=== PATIENT | female | born 1935 | race Caucasian/White ===

== ENCOUNTER 2021-10-17 16:01 | Emergency (ER) | payer MEDICARE, OTHER ==
[2021-10-17] VITALS (16 sets, daily range): BP systolic 111–133; BP diastolic 54–77
[2021-10-17] MEDS ORDERED: ARICEPT10 MG PO (17:51)
[2021-10-17] MEDS ORDERED: MIRTAZAPINE15 MG PO (17:51)
[2021-10-17] MEDS ORDERED: FUROSEMIDE20 MG PO (17:51)
[2021-10-17] MEDS ORDERED: RISPERIDONE0.5 MG PO (17:52)
[2021-10-17] MEDS ORDERED: NAMENDA XR28 MG (17:52)
[2021-10-17 19:01] LABS: HEMATOCRIT 33.3 % (37.0-47.0); HEMOGLOBIN 10.3 g/dl (12.0-16.0); IMMATURE GRANULOCYTES 0.6 % (0.0-5.0); MEAN CELL VOLUME 96.2 fL CALC (80.0-100.0); MEAN CORPUSCULAR HGB 29.8 pG CALC (26.0-32.0); MEAN CORPUSCULAR HGB CONC 30.9 g/dL CAL (32.0-36.0); NEUT# 4.65 thou/uL (2.00-7.15); RED BLOOD COUNT 3.46 mill/uL (4.20-5.60); RED CELL DISTRI WIDTH 17.6 % (11.5-15.5)
[2021-10-17 19:18] LABS: ALBUMIN 3.5 g/dL (3.2-5.0); ALKALINE PHOSPHATASE 108 u/l (38-126); ANION GAP 11 (6-22 (CALC)); BILIRUBIN, TOTAL 0.4 mg/dL (0.0-1.4); BUN 24 mg/dL (8-23); BUN/CREATININE RATIO 28 (12-20 (CALC)); CARBON DIOXIDE 27 mmol/l (22-30); CHLORIDE 104 mmol/l (95-108); CREATININE 0.9 mg/dL (0.5-1.0); GFR 59 ML/MIN (>=60 (CALC)); GFR FOR AFR.AMER. > 60 ML/MIN (>=60 (CALC)); POTASSIUM 4.4 mmol/l (3.5-5.1); SGOT/AST 16 u/l (9-36); SODIUM 138 mmol/l (137-146); TOTAL PROTEIN 6.7 g/dL (6.3-8.2)
[2021-10-18] VITALS (7 sets, daily range): BP systolic 98–120; BP diastolic 47–81
== END 2021-10-18 03:28 | disposition short-term general hospital (02) ==
LOC: ED 16:01
PROVIDERS: Nurse Practitioner
DX: S22.080A Wedge compression fracture of T11-T12 vertebra, initial encounter for closed fracture (principal); S32.010A Wedge compression fracture of first lumbar vertebra, initial encounter for closed fracture; F03.90 Unspecified dementia, unspecified severity, without behavioral disturbance, psychotic disturbance, mood disturbance, and anxiety; W19.XXXA Unspecified fall, initial encounter; Z91.81 History of falling

== ENCOUNTER 2021-11-15 14:07 | Emergency (ER) | payer MEDICARE, OTHER ==
[~2021-11-15] VITALS: Ht 152.4 cm; Wt 40.0 kg
[~2021-11-15 14:07] MED LIST: ARICEPT10 MG PO; FUROSEMIDE20 MG PO; MIRTAZAPINE15 MG PO; NAMENDA XR28 MG; RISPERIDONE0.5 MG PO
[2021-11-15 14:47] VITALS: BP 144/73
[2021-11-15 15:00] VITALS: BP 126/72
[2021-11-15] MEDS ORDERED: VOLTAREN1%GEL TOP (15:07)
[2021-11-15 15:15] VITALS: BP 139/66
== END 2021-11-15 15:20 | disposition home or self-care (01) ==
LOC: ED 14:07
DX: M79.651 Pain in right thigh (principal); F03.90 Unspecified dementia, unspecified severity, without behavioral disturbance, psychotic disturbance, mood disturbance, and anxiety

== ENCOUNTER 2024-06-22 12:20 | Inpatient (IN) | payer MEDICARE ==
[2024-06-22] VITALS (54 sets, daily range): BP systolic 48–160; BP diastolic 31–138
[~2024-06-22] VITALS: Ht 152.4 cm; Wt 41.9 kg
[~2024-06-22 12:20] MED LIST changes: +VOLTAREN1%GEL TOP
--- NOTE | 2024-06-22 12:20 | NUR ---
PT BROUGHT BACK TO ER ROOM 8 VIA WHEELCHAIR, FAMILY AT SIDE
--- NOTE | 2024-06-22 13:05 | NUR ---
PROVIDER AT BEDSIDE.
[2024-06-22 13:49] LABS: BASO% 0.6 % (0-3); HEMATOCRIT 33.7 % (37.0-47.0); HEMOGLOBIN 10.6 g/dl (12.0-16.0); IMMATURE GRANULOCYTES 0.2 % (0.0-5.0); LYMPH% 16.9 % (15-41); MEAN CELL VOLUME 96.8 fL CALC (80.0-100.0); MEAN CORPUSCULAR HGB 30.5 pG CALC (26.0-32.0); MEAN CORPUSCULAR HGB CONC 31.5 g/dL CAL (32.0-36.0); MONO% 7.7 % (2-13); NEUT# 3.68 thou/uL (2.00-7.15); NEUT% 70.6 % (42-76); RED BLOOD COUNT 3.48 mill/uL (4.20-5.60); RED CELL DISTRI WIDTH 15.5 % (11.5-15.5)
[2024-06-22 14:04] LABS: ALKALINE PHOSPHATASE 71 u/l (38-126); ANION GAP 14 (6-22 (CALC)); BUN 22 mg/dL (8-23); BUN/CREATININE RATIO 24 (12-20 (CALC)); CARBON DIOXIDE 24 mmol/l (22-30); CHLORIDE 104 mmol/l (95-108); CREATININE 0.9 mg/dL (0.5-1.0); ESTIMATED GFR 61 ML/MIN (>=90 (CALC)); MAGNESIUM 2.2 mg/dL (1.6-2.3); POTASSIUM 4.5 mmol/l (3.5-5.1); SGOT/AST 17 u/l (9-36); SODIUM 137 mmol/l (137-146); TOTAL PROTEIN 7.1 g/dL (6.3-8.2)
[2024-06-22 14:07] LABS: BILIRUBIN, TOTAL 0.9 mg/dL (0.02-1.3)
[2024-06-22] MEDS ORDERED: SODIUM CHLORIDE 0.9% 250 ML IV ONE (14:10)
[2024-06-22] MEDS ORDERED: DILTIAZEM HCL 125 MG in SODIUM CHLORIDE 0.9% 100 ML IV ONE (14:10)
[2024-06-22] MEDS ORDERED: dilTIAZem HCL 50 MG/10 ML SDV IV ONE (14:10)
[2024-06-22 14:46] LABS: URINE BILIRUBIN - DIPSTICK Negative (NEGATIVE); URINE BLOOD DIPSTICK Negative (NEGATIVE); URINE GLUCOSE - DIPSTICK Negative (NEGATIVE); URINE KETONE Negative (NEGATIVE); URINE NITRITE - DIPSTICK Negative (Negative); URINE PROTEIN - DIPSTICK Negative (NEG-TRACE); URINE SPECIFIC GRAVITY <=1.005; URINE UROBILINOGEN - DIPSTICK 0.2 E.U./dL (0.2)
[2024-06-22 14:48] LABS: URINE BACTERIA FEW hpf; URINE COLOR Yellow; URINE LEUK ESTERASE Small (NEGATIVE); URINE WBC 0-2 WBC/hpf (0-5)
[2024-06-22] MEDS ORDERED: ACETAMINOPHEN 325 MG/TAB PO PRN (15:05)
[2024-06-22] MEDS ORDERED: MAGNESIUM HYDROXIDE 30 ML UDC PO PRN (15:05)
[2024-06-22] MEDS ORDERED: REMERON7.5 MG PO (15:17)
--- NOTE | 2024-06-22 15:30 | NUR ---
CARDIZEM DRIP RUNNING @ 10 AT THIS TIME. PATIENT LYING IN BED WITH NO ACUTE DISTRESS NOTED AT THIS TIME.
[2024-06-22] MEDS ORDERED: ENOXAPARIN SODIUM 40 MG/0.4 ML SYR SC SCH (16:00)
--- NOTE | 2024-06-22 16:00 | NUR ---
PATIENT SITTING UP IN BED WATCHING TV. DENIES NEEDS AT THIS TIME. CALL LIGHT IN REACH. VSS.
--- NOTE | 2024-06-22 16:25 | NUR ---
PATIENT TO ICU VIA WHEELCHAIR. CARDIZEM RUNNING AT 10 WITH HR BETWEEN 90-120, A FIB NOTED ON THE MONITOR.
--- NOTE | 2024-06-22 16:28 | NUR ---
PATIENT ARRIVED FROM ER VIA WHEELCHAIR. PATIENT WAS ABLE TO AMBULATE TO BED WITH WALKER WITHOUT ISSUE. PATIENT AXO X3. S1S2 NOTED, A-FLUTTER ON TELE. LUNG SOUNDS CLEAR, NO COUGH OR SOB NOTED, ON ROOM AIR. ABDOMEN SOFT, NON DISTENDED, NON TENDER, WITH ACTIVE BOWEL SOUNDS. PULSES STRONG IN ALL EXTREMITIES. SKIN WDI, NO EDEMA NOTED.
[2024-06-22] MEDS ORDERED: NOREPINEPHRINE BITARTRATE 4 MG in DEXTROSE 5% 250 ML IV PRN (19:15)
[2024-06-22] MEDS ORDERED: SODIUM CHLORIDE 0.9% 250 ML IV PRN (19:15)
[2024-06-22] MEDS ORDERED: SODIUM CHLORIDE 0.9% 1,000 ML IV ONE (19:15)
--- NOTE | 2024-06-22 19:40 | NUR ---
ASSESSMENT COMPLETE. PREVIOUS NURSE OBTAINED ORDERS FOR NS 1L BOLUS, AND TO INITIATE LEVOPHED GTT FOR LOW BP. PT IN A-FIB, HR 130'S-160'S. CARDIZEM RESTARTED @ 10 MG/HR, AFTER 15 MIN, TITRATED TO 15 MG/HR. NEW IV STARTED IN RAC, 20 G. PT HAS NO COMPLAINTS.CALL LIGHT IN REACH
[2024-06-22] MEDS ORDERED: METOPROLOL TARTRATE 5 MG/5 ML VIAL IV SCH (21:00)
--- NOTE | 2024-06-22 21:00 | NUR ---
PROVIDER NOTIFIED OF HR, GAVE TELEPHONE ORDER FOR METOPROLOL 5 MG IV.
--- NOTE | 2024-06-22 22:00 | NUR ---
PT ASSISTED TO BR, PT USES WALKER TO ASSIST WITH AMBULATION. CARDIZEM @ 15 MG/HR, LEVOPHED @ 8 MCG/MIN. BRIEF PLACED ON PT PER HER REQUEST. CALL LIGHT IN REACH
[2024-06-23] VITALS (75 sets, daily range): BP systolic 66–191; BP diastolic 35–158
--- NOTE | 2024-06-23 00:19 | NUR ---
PROVIDER GAVE ORDERS TO WEAN PT OFF OF LEVOPHED GTT. PT RESTING COMFORTABLY, HAS NO COMPLAINTS/NEEDS AT THIS TIME. PW PLACED ON PT FOR URINATION. PT INQUIRED ABOUT IV SITE AND DURATION THEY NEEDED TO BE IN. EDUCATED PT ON NEED FOR IV PLACEMENT UNTIL DISCHARGE. VS STABLE, HR IS A-FIB, 90'S. CALL LIGHT IN REACH
--- NOTE | 2024-06-23 00:22 | NUR ---
PT RESTFUL, HR A-FIB, 90'S. V/S STABLE. PT HAS NO COMPLAINTS. CALL LIGHT IN REACH
[2024-06-23] MEDS ORDERED: dilTIAZem HCL 50 MG/10 ML SDV IV PRN ×2 (00:35)
[2024-06-23] MEDS ORDERED: DILTIAZEM HCL 125 MG in SODIUM CHLORIDE 0.9% 100 ML IV PRN (00:35)
--- NOTE | 2024-06-23 02:00 | NUR ---
PT READJUSTED IN BED. HR IS 90'S A-FIB, BP 113/65. PT HAS NO NEEDS/COMPLAINTS AT THIS TIME. CALL LIGHT IN REACH
--- NOTE | 2024-06-23 04:00 | NUR ---
PT RESTING. HR A-FIB, 65. BP 70/35, LEVOPHED STARTED AGAIN. CALL LIGHT IN REACH
--- NOTE | 2024-06-23 07:30 | NUR ---
IN TO SEE PATIENT.
--- NOTE | 2024-06-23 08:00 | NUR ---
PATIENT NOTED LYING IN BED WITH NO ACUTE DISTRESS NOTED AT THIS TIME. PATIENT BP NOTED IN THE 70S SYSTOLIC. SHE IS A FIB CONTROLLED IN THE 60S ON THE MONITOR. CARDIZM NOTED RUNNING AT 5. LEVO NOTED RUNNING AT 4 AT THIS TIME. BOTH CARDIZEM AND LEVO PLACED ON HOLD AT THIS TIME. WILL CONTINUE MONITORING BP FOR IMPROVEMENT. AWARE OF CONTROLLED AFIB.
[2024-06-23 08:10] LABS: HEMATOCRIT 30.8 % (37.0-47.0); HEMOGLOBIN 9.7 g/dl (12.0-16.0); MEAN CELL VOLUME 98.1 fL CALC (80.0-100.0); MEAN CORPUSCULAR HGB 30.9 pG CALC (26.0-32.0); MEAN CORPUSCULAR HGB CONC 31.5 g/dL CAL (32.0-36.0); RED BLOOD COUNT 3.14 mill/uL (4.20-5.60); RED CELL DISTRI WIDTH 15.4 % (11.5-15.5)
[2024-06-23 08:37] LABS: ALBUMIN 3.4 g/dL (3.2-5.0); BILIRUBIN, TOTAL 0.6 mg/dL (0.02-1.3); POTASSIUM 4.4 mmol/l (3.5-5.1); TOTAL PROTEIN 6.3 g/dL (6.3-8.2)
--- NOTE | 2024-06-23 09:00 | NUR ---
PATIENT ATE 100% OF BREADKFAST. LEVO AND CARDIZEM IS STILL OFF AT THIS TIME. HR NOTED AFIB CONTRULLED IN THE 60S-80S. LEVO OFF AND BP NOTED IN THE HIGH 90S TO LOW 100S SYSTOLIC.
--- NOTE | 2024-06-23 10:21 | NUR ---
PATIENT SLEEPING AT THIS TIME. NO ACUTE DISTRESS NOTED. VSS.
--- NOTE | 2024-06-23 11:00 | NUR ---
REPORT RECEIVED FROM MELISSA. PATIENT AXO X3. S1S2 NOTED, A-FIB ON TELE. LUNG SOUNDS CLEAR, NO COUGH OR SOB NOTED, ON 2L O2 NC. ABDOMEN SOFT, NON DISTENDED, NON TENDER, WITH ACTIVE BOWEL SOUNDS. PULSES STRONG IN ALL EXTREMITIES. SKIN WDI. CALL LIGHT IN REACH.
--- NOTE | 2024-06-23 11:14 | NUR ---
REPORT GIVEN TO MARY ANN
--- NOTE | 2024-06-23 12:00 | NUR ---
PATIENT LAYING DOWN IN BED ASLEEP. ALL NEEDS MET. CALL LIGHT IN REACH.
--- NOTE | 2024-06-23 14:00 | NUR ---
PATIENT SITTING UP IN BED EATING. ALL NEEDS MET. CALL LIGHT IN REACH.
--- NOTE | 2024-06-23 16:00 | NUR ---
PATIENT SITTING UP IN BED. DENIES NEEDS AT THIS TIME. CALL LIGHT IN REACH.
--- NOTE | 2024-06-23 18:00 | NUR ---
PATIENT LAYING DOWN IN BED RESTING. DENIES NEEDS AT THIS TIME. CALL LIGHT IN REACH.
--- NOTE | 2024-06-23 20:00 | NUR ---
PT ASSESSMENT COMPLETED. PT ASSISTED TO BR. BENSON GTT @ 5 MG/HR. HR IS A-FIB 84. 2L 02 NC. BP 97/50. PT HAS NO COMPLAINTS. THERE WAS NOTABLE VAGINAL ODOR EVEN AFTER TANJA CARE. CALL LIGHT IN REACH
[2024-06-23] MEDS ORDERED: MIRTAZAPINE 15 MG/TAB PO SCH (21:00)
--- NOTE | 2024-06-23 22:45 | NUR ---
PT RESTFUL. CARDIZEM IS @ 15 MG/HR, HR IS AFIB 120'S. NOTIFIED PROVIDER, GAVE ORDER FOR IV METOPROLOL. PT HAS NO COMPLAINTS, PW PLACED ON PT. CALL LIGHT IN REACH
[2024-06-23] MEDS ORDERED: METOPROLOL TARTRATE 5 MG/5 ML VIAL IV SCH (23:00)
--- NOTE | 2024-06-23 23:33 | NUR ---
PT IV IN LAC LEAKING, IV REMOVED, CATHETER INTACT. HOLDING IV METOPROLOL, HR IS 90, BP IS 84/54 MAP OF 64.
[2024-06-24] VITALS (93 sets, daily range): BP systolic 69–125; BP diastolic 34–84
--- NOTE | 2024-06-24 02:30 | NUR ---
PT RESTLESS, VERY ANXIOUS, CANNOT REMAIN STILL, WANTS OUT OF BED. PT PULLED RAC IV OUT, CATHETER INTACT. 22G STARTED ON RFA. EDUCATED PT ON CURRENT HR AND NEED TO REST. PT IS A + O TO PERSON AND PLACE. NC WAS NOT HELPING O2, PT IS MOUTH BREATHING, RT PLACED OXY MASK @ 6 L. BED BATH COMPLETED, LINENS CHANGED, PW PLACED BACK ON PT.
--- NOTE | 2024-06-24 04:20 | NUR ---
PT READJUSTED IN BED. CARDIZEM @ 15 MG/HR. HR IS AFIB 112. BP 92/54, STILL HOLDING LOPRESSOR BECAUSE OF LOW PRESSURE. CALL LIGHT IN REACH
[2024-06-24 05:17] LABS: HEMATOCRIT 31.5 % (37.0-47.0); HEMOGLOBIN 9.6 g/dl (12.0-16.0); MEAN CORPUSCULAR HGB 30.5 pG CALC (26.0-32.0); MEAN CORPUSCULAR HGB CONC 30.5 g/dL CAL (32.0-36.0); RED BLOOD COUNT 3.15 mill/uL (4.20-5.60); RED CELL DISTRI WIDTH 15.7 % (11.5-15.5)
[2024-06-24 05:41] LABS: ALBUMIN 3.3 g/dL (3.2-5.0); BILIRUBIN, TOTAL 0.8 mg/dL (0.02-1.3); CREATININE 0.9 mg/dL (0.5-1.0); POTASSIUM 4.3 mmol/l (3.5-5.1); TOTAL PROTEIN 6.2 g/dL (6.3-8.2)
--- NOTE | 2024-06-24 06:46 | NUR ---
PT ASSISTED TO BR USING WALKER. MARCELINO Lilly/C, EDUCATED PT ON POC TO GIVE METOPROLOL PER PROVIDER ORDERS. CALL LIGHT IN REACH
--- NOTE | 2024-06-24 08:30 | NUR ---
PT IS AWAKE IN BED, CALL LIGHT IN REACH.
[2024-06-24] MEDS ORDERED: METOPROLOL TARTRATE 50 MG/TAB PO SCH (09:00)
[2024-06-24] MEDS ORDERED: SODIUM CHLORIDE 0.9% 250 ML IV PRN (09:40)
[2024-06-24] MEDS ORDERED: amioDARONE HCl 450 MG in SODIUM CHLORIDE 250 ML IV SCH (10:00)
--- NOTE | 2024-06-24 10:00 | NUR ---
PT IS AWAKE IN BED, CALL LIGHT IN REACH.
--- NOTE | 2024-06-24 12:00 | NUR ---
PT IS AWAKE IN CHAIR BESIDE BED. CALL LIGHT IN REACH.
--- NOTE | 2024-06-24 14:00 | NUR ---
PT IS IN BED RESTING WITH EVEN AND UNLABORED RESPIRATIONS. CALL LIGHT IN REACH.
--- NOTE | 2024-06-24 16:00 | NUR ---
PT IS SLEEPING IN BED. ON TELEMETRY. CALL LIGHT IN REACH.
--- NOTE | 2024-06-24 18:07 | NUR ---
PT IS CANDICE Fisher ON THE EDGE OF THE BED EATING. CALL LIGHT IN REACH.
--- NOTE | 2024-06-24 19:00 | NUR ---
REPORT RECEIVED FROM OFF GOING NURSE.
--- NOTE | 2024-06-24 20:00 | NUR ---
PATIENT NOTED LYING IN BED WITH NO ACUTE DISTRESS NOTED. AMIODARONE NOTED RUNNING AT 1. PATIENT NOTED AFIB CONTROLLED AT THIS TIME. BP WNL. ASSESSMENT COMPLETED (SEE INTERVENTIONS). SHE DENIES ANY PAIN OR DISCOMFORT. BED LOCKED, IN LOW POSITION, CALL LIGHT WITHIN REACH.
--- NOTE | 2024-06-24 22:00 | NUR ---
AMIODARONE DECREASED TO 0.5; 06/25/24 @ 1600 DRIP WILL BE COMPLETED. PATIENT IS STILL AFIB CONTROLLED AT THIS TIME. BP WNL. SHE DENIES ANY PAIN OR DISCOMFORT. BED LOCKED, IN LOW POSITION, CALL LIGHT WITHIN REACH.
[2024-06-25] VITALS (85 sets, daily range): BP systolic 76–129; BP diastolic 53–80
--- NOTE | 2024-06-25 | NUR ---
NO CHANGES NOTED. PATIENT SLEEPING COMFORTABLY. BED LOCKED, IN LOW POSITION, CALL LIGHT WITHIN REACH.
--- NOTE | 2024-06-25 02:00 | NUR ---
PATIENT SLEEPING. SHE IS NOTED AFIB CONTROLLED ON THE MONITOR. AMIODARONE STILL RUNNING AT 0.5 AT THIS TIME. VSS. BED LOCKED, IN LOW POSITION, CALL LIGHT WITHIN REACH.
--- NOTE | 2024-06-25 06:00 | NUR ---
PATIENT ASSISTED TO THE BEDSIDE COMMODE. ADEQUATE OUTPUT NOTED THROUGHOUT THE SHIFT.
--- NOTE | 2024-06-25 08:12 | NUR ---
PT IS IN THE CHAIR EATING BREAKFAST.CALL LIGHT IN REACH.
[2024-06-25] MEDS ORDERED: PANTOPRAZOLE SODIUM Sesquihydr 40 MG/TAB PO SCH (09:00)
--- NOTE | 2024-06-25 10:00 | NUR ---
PT IS SLEEPING IN BED. ON TELEMETRY WITH EVEN AND UNLABORED RESPIRATIONS. CALL LIGHT IN REACH.
--- NOTE | 2024-06-25 12:05 | NUR ---
PT IS UP TO THE [place] WATCHING TV. CALL LIGHT IN HAND.
--- NOTE | 2024-06-25 14:09 | NUR ---
PT IS SITTING IN THE CHAIR WATCHING TV. CALL LIGHT IN REACH.
--- NOTE | 2024-06-25 16:02 | NUR ---
PT IS RESTING IN THE CHAIR. EASILY AROUSABLE, ON TELEMETRY AND HAS UNLABORED RESPIRATIONS. CALL LIGHT IN REACH.
--- NOTE | 2024-06-25 17:59 | NUR ---
PT IS SLEEPING IN THE CHAIR. CALL LIGHT IN REACH. ON TELEMETRY WITH UN LABORERED RESPIRATIONS.
--- NOTE | 2024-06-25 19:00 | NUR ---
REPORT RECEIVED FROM OFF GOING NURSE.
--- NOTE | 2024-06-25 20:00 | NUR ---
PATIENT LYING IN BED WITH NO ACUTE DISTRESS NOTED. VSS AT THIS TIME. ASSESSMENT COMPLETED (SEE INTERVENTIONS). PATIENT ASSISTED TO BATHROOM WITH STANDBY ASSIST. SHE DENIES ANY PAIN OR DISCOMFORT. BED LOCKED, IN LOW POSITION, CALL [facility] WITHIN REACH.
--- NOTE | 2024-06-25 22:00 | NUR ---
PATIENT GIVEN COMPLETE BATH AND LINEN CHANGE. NO ACUTE DISTRESS NOTED. VSS.
[2024-06-26] VITALS (51 sets, daily range): BP systolic 80–126; BP diastolic 48–83
--- NOTE | 2024-06-26 | NUR ---
PATIENT SLEEPING. BED LOCKED, IN LOW POSITION, CALL LIGHT WITHIN REACH.
--- NOTE | 2024-06-26 02:00 | NUR ---
PATIENT SLEEPING AT THIS TIME. NO ACUTE DITRESS NOTED. VSS. BED LOCKED, IN LOW POSITION, CALL LIGHT WITHIN REACH.
[2024-06-26 05:48] LABS: BASO% 0.3 % (0-3); EOS% 3.9 % (0-8); HEMATOCRIT 28.7 % (37.0-47.0); IMMATURE GRANULOCYTES 0.3 % (0.0-5.0); LYMPH% 14.2 % (15-41); MEAN CELL VOLUME 98.3 fL CALC (80.0-100.0); MEAN CORPUSCULAR HGB 30.8 pG CALC (26.0-32.0); MEAN CORPUSCULAR HGB CONC 31.4 g/dL CAL (32.0-36.0); MONO% 4.9 % (2-13); NEUT# 4.47 thou/uL (2.00-7.15); NEUT% 76.4 % (42-76); RED BLOOD COUNT 2.92 mill/uL (4.20-5.60); RED CELL DISTRI WIDTH 15.4 % (11.5-15.5)
[2024-06-26 05:59] LABS: ALBUMIN 3.1 g/dL (3.2-5.0); BILIRUBIN, TOTAL 0.6 mg/dL (0.02-1.3); CREATININE 0.8 mg/dL (0.5-1.0); MAGNESIUM 2.1 mg/dL (1.6-2.3); POTASSIUM 4.4 mmol/l (3.5-5.1)
--- NOTE | 2024-06-26 06:00 | NUR ---
NO CHANGES NOTED. PATIENT HAS PUREWICK IN PLACE. VSS. SHE IS A FLUTTER ON THE MONITOR. ADEQUATE OUTPUT NOTED THROUGHOUT THE NIGHT.
--- NOTE | 2024-06-26 08:00 | NUR ---
PT IS SITTING IN THE CHAIR EATING BREAKFAST. CALL LIGHT IN REACH.
[2024-06-26] MEDS ORDERED: METOPROLOL TARTRATE 50 MG/TAB PO SCH (09:00)
--- NOTE | 2024-06-26 09:01 | NUR ---
CALLED [phone] MARGARITO HOLLAND. THEY CONFIRMED CONSULT IS IN.
--- NOTE | 2024-06-26 10:00 | NUR ---
PT IS RESTING IN BED. ON TELEMETRY WITH UNLABORED RESPIRATIONS. CALL LIGHT IN REACH.
--- NOTE | 2024-06-26 11:58 | NUR ---
DR. PIMENTEL AT BEDSIDE TO EVALUATE PATIENT AND DISCUSS PLAN OF CARE.
--- NOTE | 2024-06-26 12:10 | NUR ---
PT IS AWAKE IN BED. CALL LIGHT IN REACH.
[2024-06-26] MEDS ORDERED: LOPRESSOR 550 MG/TAB PO (12:39)
[2024-06-26] MEDS ORDERED: ASPIRIN ADULT L81 M2 PO (12:39)
--- NOTE | 2024-06-26 14:04 | NUR ---
PT IS SLEEPING IN BED , ON TELEMETRY WITH UNLABORED RESPIRATIONS. CALL LIGHT IN REACH.
[2024-06-26] MEDS ORDERED: METOPROLOL TARTRATE 5 MG/5 ML VIAL IV SCH (14:45)
--- NOTE | 2024-06-26 16:11 | NUR ---
PT IS AWAKE IN BED ECHO IN PROGRESS. POTTERY KILN BUILDER AT BEDSIDE.
--- NOTE | 2024-06-26 18:15 | NUR ---
PT IS RESTING IN BED. ON TELEMETRY WITH UNLABORED RESPIRATIONS. CALL LIGHT IN REACH.
[2024-06-26] MEDS ORDERED: FUROSEMIDE 40 MG/4 ML SDV IV ONE (19:45)
--- NOTE | 2024-06-26 20:00 | NUR ---
ASSESSMENT COMPLETED. PT HAS NO COMPLAINTS. ASSISTED TO BR W/ USE OF WALKER. HR IS 115 PER MONITOR. BP SOFT, 96/58. CALL LIGHT IN REACH
[2024-06-26] MEDS ORDERED: FLECAINIDE ACETATE 50 MG TAB PO SCH (20:10)
--- NOTE | 2024-06-26 22:00 | NUR ---
PT ASSISTED TO BR W/ WALKER. LINENS CHANGED, PT WASHED UP WHILE STANDING W/ WALKER. EDUCATED PT ON LASIX AND SIDE EFFECT OF FREQUENT URINATION. CALL LIGHT IN REACH
[2024-06-27] VITALS (106 sets, daily range): BP systolic 68–210; BP diastolic 36–178
--- NOTE | 2024-06-27 | NUR ---
LINENS CHANGED. TANJA CARE COMPLETED. PW PLACED ON PT DUE TO FREQUENT URINATION. PT HAS NO COMPLAINTS. CALL LIGHT IN REACH
--- NOTE | 2024-06-27 02:00 | NUR ---
PT RESTFUL, CONTINUES TO HAVE FREQUENT URINATION. EDUCATED PT ON SIDE EFFECT OF LASIX. CALL LIGHT IN REACH
--- NOTE | 2024-06-27 04:00 | NUR ---
PT REQUSTS TO USE BR, ASSISTED W/ WALKER. PT HAS NO COMPLAINTS. HR IS A-FLUTT 114 PER MONITOR. BP 105/72. CALL LIGHT IN REACH
[2024-06-27 05:29] LABS: HEMATOCRIT 32.7 % (37.0-47.0); HEMOGLOBIN 10.2 g/dl (12.0-16.0); MEAN CELL VOLUME 98.5 fL CALC (80.0-100.0); MEAN CORPUSCULAR HGB 30.7 pG CALC (26.0-32.0); MEAN CORPUSCULAR HGB CONC 31.2 g/dL CAL (32.0-36.0); RED BLOOD COUNT 3.32 mill/uL (4.20-5.60); RED CELL DISTRI WIDTH 15.3 % (11.5-15.5)
[2024-06-27 05:52] LABS: ALBUMIN 3.5 g/dL (3.2-5.0); BILIRUBIN, TOTAL 0.6 mg/dL (0.02-1.3); CREATININE 1.2 mg/dL (0.5-1.0); POTASSIUM 3.9 mmol/l (3.5-5.1); TOTAL PROTEIN 6.6 g/dL (6.3-8.2)
--- NOTE | 2024-06-27 06:24 | NUR ---
PT ASSISTED TO BR W/ WALKER. NEW CHUCHK PAD PLACED. PT HAS NO COMPLAINTS. V/S STABLE, HR REMAINS A-FLUTT 103. BP 118/66. CALL LIGHT IN REACH
--- NOTE | 2024-06-27 08:00 | NUR ---
PT IS LAYING IN BED AWAKE. CALL LIGHT IN REACH.
--- NOTE | 2024-06-27 10:17 | NUR ---
PT IS SLEEPING, CONNECTED TO TELEMETRY WITH EVEN AND UNLABORED BREATHING. CALL LIGHT IN REACH.
--- NOTE | 2024-06-27 12:16 | NUR ---
PT IS SITTING ON THE EDGE OF THE BED. CALL LIGHT IN REACH.
[2024-06-27] MEDS ORDERED: AMIODARONE 200 MG/TAB PO SCH (13:00)
--- NOTE | 2024-06-27 14:05 | NUR ---
PT IS SLEEPING IN BED. CALL LIGHT IN REACH.
--- NOTE | 2024-06-27 14:08 | NUR ---
DR. DHALIWAL NOTIFIED OF PATIENTS BLOOD PRESSURE.
--- NOTE | 2024-06-27 16:04 | NUR ---
PT IS SITTING IN THE CHAIR WATCHING TV. CALL LIGHT IN REACH.
[2024-06-27] MEDS ORDERED: MIDODRINE HCL 5 MG TAB PO SCH (17:00)
--- NOTE | 2024-06-27 18:17 | NUR ---
PT IS IN THE CHAIR WATCHING TV. CALL LIGHT IN REACH.
--- NOTE | 2024-06-27 20:00 | NUR ---
ASSESSMENT COMPLETED. PT RESTFUL, HAS NO COMPLAINTS. HR IS A-FLUTT 113 PER MONITOR. BP SOFT 95/61. STUCCO WORKER ASSISTED PT TO BSC AND BACK TO BED. CALL LIGHT IN REACH
--- NOTE | 2024-06-27 22:20 | NUR ---
PROVIDER NOTIFIED OF DECREASE IN BP, GAVE ORDER TO START PT ON LEVOPHED.
[2024-06-28] VITALS (88 sets, daily range): BP systolic 76–127; BP diastolic 46–84
--- NOTE | 2024-06-28 02:10 | NUR ---
PT ASSISTED TO BSC. NO COMPLAINTS AND THIS TIME. LEVOPHED IS @ 2 MCG/MIN, BP IS 109/78, HR IS 107 PER MONITOR. CALL LIGHT IN REACH
--- NOTE | 2024-06-28 04:48 | NUR ---
PT ASSISTED TO BSC. PT HAS NO COMPLAINTS. NO CHANGES NOTED. HR IS 104, BP 117/77, LEVOPHED IS @ 2 MCG/MIN. CALL LIGHT IN REACH
[2024-06-28 05:31] LABS: HEMATOCRIT 34.3 % (37.0-47.0); HEMOGLOBIN 10.5 g/dl (12.0-16.0); MEAN CELL VOLUME 100.3 fL CALC (80.0-100.0); MEAN CORPUSCULAR HGB 30.7 pG CALC (26.0-32.0); MEAN CORPUSCULAR HGB CONC 30.6 g/dL CAL (32.0-36.0); RED BLOOD COUNT 3.42 mill/uL (4.20-5.60); RED CELL DISTRI WIDTH 15.4 % (11.5-15.5)
[2024-06-28 05:56] LABS: ALBUMIN 3.5 g/dL (3.2-5.0); BILIRUBIN, TOTAL 0.6 mg/dL (0.02-1.3); CREATININE 1.2 mg/dL (0.5-1.0); MAGNESIUM 2.1 mg/dL (1.6-2.3); POTASSIUM 4.4 mmol/l (3.5-5.1); TOTAL PROTEIN 6.5 g/dL (6.3-8.2)
--- NOTE | 2024-06-28 06:29 | NUR ---
PT RESTING COMFORTABLY, NO CHANGES. LEVOPHED REMAINS @ 2 MCG/MIN, BP 115/80. HR IS A-FLUTT 105. PT HAS NO COMPLAINTS/NO NEEDS AT THIS TIME. CALL LIGHT IN REACH
--- NOTE | 2024-06-28 07:49 | NUR ---
REPORT RECEIVED FROM NIGHT NURSE. PATIENT AXO X3. S1S2 NOTED, A-FIB ON TELE. LUNG SOUNDS CLEAR, NO COUGH OR SOB NOTED. ABDOMEN SOFT, NON DISTENDED, NON TENDER, WITH ACTIVE BOWEL SOUNDS. UPPER PULSES STRONG, LOWER WEAK. SKIN WDI. CALL LIGHT IN REACH.
--- NOTE | 2024-06-28 08:00 | NUR ---
PATIENT SITTING UP IN BED EATING. CALL LIGHT IN REACH. ALL NEEDS MET.
[2024-06-28] MEDS ORDERED: METOPROLOL TARTRATE 50 MG/TAB PO SCH (09:00)
--- NOTE | 2024-06-28 10:00 | NUR ---
PATIENT SITTING UP IN BED. ALL NEEDS MET. CALL LIGHT IN REACH.
--- NOTE | 2024-06-28 12:00 | NUR ---
PATIENT SITTING UP IN BED RESTING. ALL NEEDS MET. CALL LIGHT IN REACH.
--- NOTE | 2024-06-28 14:00 | NUR ---
PATIENT SITTING UP IN BED. DENIES NEEDS AT THIS TIME. CALL LIGHT IN REACH.
--- NOTE | 2024-06-28 16:00 | NUR ---
PATIENT SITTING UP IN BED. ALL NEEDS MET. CALL LIGHT IN REACH.
--- NOTE | 2024-06-28 18:00 | NUR ---
PATIENT LAYING DOWN IN BED ASLEEP. ALL NEEDS MET. CALL LIGHT IN REACH.
--- NOTE | 2024-06-28 20:00 | NUR ---
ASSESSMENT COMPLETED. PT IS RESTFUL. HR IS 103, A-FLUTT PER MONITOR. PT HAS NO COMPLAINTS. PT ASSISTED TO BR W/ WALKER. CALL LIGHT IN REACH
--- NOTE | 2024-06-28 22:45 | NUR ---
PT RESTING COMFORTABLY, NO COMPLAINTS AT THIS TIME. NO CHANGES NOTED. CALL LIGHT IN REACH
[2024-06-29] VITALS (59 sets, daily range): BP systolic 54–123; BP diastolic 28–81
--- NOTE | 2024-06-29 00:30 | NUR ---
PT RESTING COMFORTABLY, NO CHANGES NOTED. V/S STABLE, CALL LIGHT IN REACH
--- NOTE | 2024-06-29 02:03 | NUR ---
PT RESTING, NO COMPLAINTS, NO CHANGE IN STATUS. CALL LIGHT IN REACH
[2024-06-29 05:42] LABS: HEMOGLOBIN 10.7 g/dl (12.0-16.0); MEAN CELL VOLUME 97.4 fL CALC (80.0-100.0); MEAN CORPUSCULAR HGB 30.7 pG CALC (26.0-32.0); MEAN CORPUSCULAR HGB CONC 31.5 g/dL CAL (32.0-36.0); RED BLOOD COUNT 3.49 mill/uL (4.20-5.60); RED CELL DISTRI WIDTH 15.3 % (11.5-15.5)
--- NOTE | 2024-06-29 06:03 | NUR ---
PT RESTING COMFORTABLY, NO CHANGES NOTED. V/S STABLE. Call light in reach
[2024-06-29 06:09] LABS: ALBUMIN 3.7 g/dL (3.2-5.0); BILIRUBIN, TOTAL 0.6 mg/dL (0.02-1.3); CREATININE 1.1 mg/dL (0.5-1.0); MAGNESIUM 2.2 mg/dL (1.6-2.3); POTASSIUM 4.5 mmol/l (3.5-5.1); TOTAL PROTEIN 6.7 g/dL (6.3-8.2)
[2024-06-29] MEDS ORDERED: ASPIRIN EC 81 MG/TAB PO SCH (09:00)
--- NOTE | 2024-06-29 10:00 | NUR ---
PATIENT SITTING UP IN BED RESTING WITH EYES CLOSED. ALL NEEDS MET. CALL LIGHT IN REACH.
--- NOTE | 2024-06-29 12:00 | NUR ---
PATIENT LAYING DOWN IN BED RESTING. DENIES NEEDS AT THIS TIME. CALL LIGHT IN REACH.
[2024-06-29] MEDS ORDERED: CORDARONE/200 MG/TAB PO (12:24)
[2024-06-29] MEDS ORDERED: MIDODRINE5 MG PO (12:39)
--- NOTE | 2024-06-29 14:00 | NUR ---
PATIENT SITTING UP RESTING. ALL NEEDS MET. CALL LIGHT IN REACH.
--- NOTE | 2024-06-29 14:15 | NUR ---
Discharge instructions given. Patient verbalizes understanding of them. Discharged in stable condition via Wheelchair to Home with staff. All belongings sent with pt. IV removed.
--- NOTE | 2024-06-30 14:25 | NUR ---
dISCHARGE FOLLOW UP CALL COMPLETED 06/30/24. pER CAREGIVER, PATIENT IS DOING VERY WELL AND HAD AN EXCELLENT NIGHT LAST NIGHT. pATIENT IS TAKING PRESCRIBED MEDICATION DIRECTED. cAREGIVER PLANS TO SCHEDULE A FOLLOW UP APPOINTMENT FOR PATIENT TODAY. nO NEEDS OR CONCERNS VERBALIZED AT THIS TIME. tHEY ARE APPRECIATIVE OF FOLLOW UP CALL.
== END 2024-06-29 14:20 | disposition home health service (06) | DRG 309 ==
LOC: ED 12:20 → ED-I 12:56 → ED 15:10 → ICU 15:10
PROVIDERS: Internal Medicine; Nurse Practitioner; ADMIT Internal Medicine; ATTEND Internal Medicine
PROC: 3E033XZ Introduction of Vasopressor into Peripheral Vein, Percutaneous Approach (ICD-10-PCS; principal; 2024-06-23)
DX: I48.92 Unspecified atrial flutter (principal); E44.1 Mild protein-calorie malnutrition; Z68.1 Body mass index [BMI] 19.9 or less, adult; N17.9 Acute kidney failure, unspecified; I50.30 Unspecified diastolic (congestive) heart failure; R09.02 Hypoxemia; I48.19 Other persistent atrial fibrillation; I49.1 Atrial premature depolarization; I44.0 Atrioventricular block, first degree; F03.90 Unspecified dementia, unspecified severity, without behavioral disturbance, psychotic disturbance, mood disturbance, and anxiety; F99 Mental disorder, not otherwise specified; I95.2 Hypotension due to drugs; T46.1X5A Adverse effect of calcium-channel blockers, initial encounter; D64.9 Anemia, unspecified
CPT/HCPCS: J0282; J1650; J1940